=== PATIENT | male | born 1995 | race Caucasian/White ===

== ENCOUNTER 2022-05-11 09:09 | Emergency (ER) | payer OTHER ==
[~2022-05-11] VITALS: Ht 182.9 cm; Wt 99.8 kg
--- NOTE | 2022-05-11 09:11 | NUR ---
Patient is seen ambulating with steady gait from ER waiting room to ER triage area, c/o low back pains.
[2022-05-11] MEDS ORDERED: KETOROLAC TROMETHAMINE 15 MG INJ ONE (09:18)
[2022-05-11] MEDS ORDERED: KETOROLAC TROMETHAMINE 15 MG INJ IM ONE (09:45)
--- NOTE | 2022-05-11 10:09 | NUR ---
Patient discharged to home in stable condition with brisk steady gait. Written and verbal after care instructions given. Patient verbalized understanding and compliance of instructions. Stressed follow up with primary doctor or return to ER for worsening s/s.
== END 2022-05-11 10:09 | disposition home or self-care (01) ==
LOC: ER 09:12
DX: M54.50 Low back pain, unspecified (principal)
CPT/HCPCS: 99283; 96372; J1885; A4663; J7070

== ENCOUNTER 2022-07-05 13:13 | Emergency (ER) | payer MEDICAID, OTHER ==
[~2022-07-05] VITALS: Ht 182.9 cm; Wt 99.8 kg
[2022-07-05] MEDS ORDERED: FLUORESCEIN SODIUM 1 MG STRIP ONE (13:57)
[2022-07-05] MEDS ORDERED: FLUORESCEIN SODIUM 1 MG STRIP OP ONE (14:00)
--- NOTE | 2022-07-05 14:11 | NUR ---
RAHUL espino was returned to [facility].
[2022-07-05] MEDS ORDERED: OFLO5DRO3 RIGHTEYE (14:16)
--- NOTE | 2022-07-05 14:23 | NUR ---
Patient discharged to home in stable condition with steady gait. Written and verbal after care instructions given to patient. Patient verbalized understanding and compliance of instructions. Stressed follow up with eye doctor (opthalmologist) or return to ER for worsening s/s.
== END 2022-07-05 14:24 | disposition home or self-care (01) ==
LOC: ER 13:17
DX: S05.01XA Injury of conjunctiva and corneal abrasion without foreign body, right eye, initial encounter (principal); X58.XXXA Exposure to other specified factors, initial encounter; Y92.89 Other specified places as the place of occurrence of the external cause; H10.9 Unspecified conjunctivitis
CPT/HCPCS: A4663